=== PATIENT | female | born 1955 | race Caucasian/White ===

== ENCOUNTER → 2018-05-08 | Outpatient (CLI) | payer OTHER ==
[~2018-05-08] MED LIST: ACE3 PO; ALP5 PO; AMOX500T10 PO; CEFD300C35 PO; CLOB15OI16 TP; CRESTOR PO; EST3 PO; FLUT16SP20 NS; KET10 PO; LEVO750T44 PO; LOR5/325 PO; METF-411 PO; MULT1CAP41 PO; ONDA4TAB PO; SIMV-49 PO; TRIA15CR40 TP
== END ==
LOC: LAB 14:04
PROVIDERS: ATTEND Internal Medicine
DX: E11.65 Type 2 diabetes mellitus with hyperglycemia (principal)
CPT/HCPCS: 36415; 83036

== ENCOUNTER → 2018-05-15 | Outpatient (CLI) | payer OTHER ==
--- NOTE | 2018-05-15 09:19 | RADIOLOGY IMAGING REPORT ---
FACILITY: [facility] PATIENT NAME: María Mcdermott : 1955 MR: [id number] V: [id number] EXAM DATE: ORDERING PHYSICIAN: AIDE DANIELS TECHNOLOGIST: Location: [facility] Patient: María Mcdermott : 1955 Visit/Account:[id number] Date of Sevice: 05/15/2018 LIVER HISTORY: Elevated LFTs COMPARISON: None. FINDINGS: Gallbladder: Unremarkable; no stones or sludge. Liver: Borderline enlarged. There is mild increased echogenicity throughout the liver which can be s een with fatty infiltration other infiltrative process Common duct: Normal, 4.6 mm diameter. Pancreas: Partially obscured by bowel, visualized aspects unremarkable. Right kidney: No evidence of right hydronephrosis. The right kidney measures 9.5 cm in length Upper abdominal aorta and IVC: Patent. Ascites: None visualized. IMPRESSION: Borderline hepatomegaly with mild increased echogenicity throughout which can be seen with fatty infi ltration or other infiltrative process Report Dictated By: Malena English MD at 05/15/2018 9:14 AM Report E-Signed By: Malena English MD at 05/15/2018 9:16 AM WSN:[id number]
== END ==
LOC: NUC 01:44
PROVIDERS: ATTEND Internal Medicine
DX: K76.0 Fatty (change of) liver, not elsewhere classified (principal)
CPT/HCPCS: 76705

== ENCOUNTER → 2018-05-22 | Outpatient (CLI) | payer OTHER ==
[~2018-05-22] MED LIST changes: +REGADENOSON 0.4 MG/5 ML SYR ONE
--- NOTE | 2018-05-22 16:28 | RADIOLOGY IMAGING REPORT ---
FACILITY: [facility] PATIENT NAME: María Mcdermott : 1955 MR: [id number] V: [id number] EXAM DATE: ORDERING PHYSICIAN: AIDE DANIELS TECHNOLOGIST: Location: [facility] [place] Patient: María Mcdermott : 1955 Visit/Account:[id number] Date of Sevice: 05/22/2018 EXAMINATION: Single isotope SPECT imaging with regadenoson infusion and gated SPECT imaging. DATE OF EXAMINATION: 05/22/2018. DATE OF INTERPRETATION: 05/22/2018. REQUESTING PHYSICIAN: AIDE DANIELS. INDICATION: The patient is a 62-year-old female evaluated for S pain. PROCEDURE: After informed consent the patient received an intravenous injection of 12.6 mCi of Tc-99 m sestamibi followed at an appropriate time interval by rest imaging. The patient then subsequently received an intravenous infusion of 0.4 mg of regadenoson per protocol without complication. Resting heart rate was 71 bpm with a peak heart rate of 101 bpm. Blood pressure at rest was 121 / 77 and fo llowing infusion was 121 / 77. Baseline EKG demonstrates normal sinus rhythm. There were no EKG garfield nges of ischemia following infusion. Symptoms were nonspecific. The patient then received an intrav enous injection of 29.8 mCi of Tc-99m sestamibi followed by stress imaging. RAW DATA: Examination of the summed raw data revealed a adequate quality study. MYOCARDIAL PERFUSION: The tomographic images demonstrate normal myocardial perfusion imaging study w ith no evidence of inducible ischemia or infarct. No transient ischemic dilation.. GATED IMAGES: The gated images demonstrate LVEF greater than 70%. No regional wall motion abnormalit ies.. IMPRESSION: 1. Nondiagnostic pharmacologic stress ECG 2. Normal myocardial perfusion scan. 3. Normal LV systolic function; LVEF > 70%. 4. Based on the results of this exam, the patient appears to be at low risk for near term future card iovascular events. Intermediate long-term risk based on need for pharmacologic stress agent as oppose d to exercise. Report Dictated By: Randolph Christian at 05/22/2018 4:21 PM Report E-Signed By: Randolph Christian at 05/22/2018 4:25 PM WSN:[id number]
--- NOTE | 2018-05-22 18:32 | RT STRESS TEST REPORT ---
FACILITY: [facility] PATIENT NAME: YANY MELLO : [id number] MR: [id number] V: [id number] EXAM DATE: ORDERING PHYSICIAN: AIDE DANIELS TECHNOLOGIST: Wes Acquisition Time: 2018-05-22 14:25:46 Total Exercise Time: 00:01:00 Test Indications: chest pain, numbness in fingers Medications: metformin aspirin Protocol: LEXISCAN Max HR: 101 BPM 63% of Pred: 159 BPM Max BP: 121/077 mmHG Max Work Load: 1.0 METS The patient had no chest pain during the test. There was no ST depression after infusion of the Jojo scan. There was diffuse T flattening that persisted. See the nuclear images for details of the test. Confirmed by DAPHNEY VELARDE ([id number]) on 05/22/2018 6:31:54 PM Referred By: Overread By: DAPHNEY VELARDE
== END ==
LOC: NUC 01:15
PROVIDERS: ATTEND Internal Medicine
DX: R07.9 Chest pain, unspecified (principal)
CPT/HCPCS: 78452; 93017; A9500; J2785

== ENCOUNTER → 2019-01-29 | Outpatient (CLI) | payer OTHER ==
[~2019-01-29] MED LIST changes: +BENZ200C15 PO; -METF-411 PO; +METF-450 PO; -REGADENOSON 0.4 MG/5 ML SYR ONE
[2019-01-29 09:44] LABS: LDL CHOLESTEROL 148 mg/dl
== END ==
LOC: LAB 09:00
PROVIDERS: ATTEND Internal Medicine
DX: E11.65 Type 2 diabetes mellitus with hyperglycemia (principal); E78.00 Pure hypercholesterolemia, unspecified
CPT/HCPCS: 36415; 82040; 82247; 82310; 82374; 82435; 82465; 82565; 82947; 83036; 83718; 84075; 84132; 84155; 84295; 84450; 84460; 84478; 84520